=== PATIENT | male | born 1985 | race Caucasian/White ===

== ENCOUNTER 2024-04-08 10:19 | Emergency (ER) | payer SELFPAY ==
[2024-04-08 10:32] VITALS: RESP 20
[2024-04-08] MEDS: TORAdol 30 mg Injection IM ONE (10:38)
[2024-04-08] MEDS ORDERED: TORAdol 30 mg Injection ONE (10:38)
[2024-04-08] MEDS: NORCO 10-325 MG PO STA (10:55)
--- NOTE | 2024-04-08 11:36 | XRAY ---
CLINICAL HISTORY: swelling/gout COMPARISON: None. TECHNIQUE: X-ray examination of the Left wrist joint is performed in PA, lateral, and oblique 3 views. FINDINGS: A subarticular cyst with thin sclerotic margins at the distal radius bone, a few are also in the triquetrum bone. Subtle irregularity noted at distal radius. Subtle soft tissue swelling at the wrist. No obvious/definite acute bony abnormality. Bone density is normal. IMPRESSION: 1. A subarticular cyst with thin sclerotic margins at the distal radius bone, a few are also in the triquetrum bone, possible geodes of gout. 2. Subtle soft tissue swelling at the wrist. 3. No obvious/definite acute bony abnormality. DISCLAIMER:A subtle bone abnormality or fracture may not be readily apparent on x-rays, thus clinical correlation and further imaging including follow up CT, MRI, or follow up x-rays are advised as needed. Electronically Signed by: Say Lewis MD. (04/08/2024 11:32:05 EDT)
[2024-04-08 11:57] VITALS: BP 155/96; PULSE 100; TEMP 98.8; O2SAT 97
--- NOTE | 2024-04-08 12:11 | ERPHSYRPT ---
- History of Present Illness Time Seen by Provider: 04/08/24 10:23 Source: patient Exam Limitations: no limitations Patient Subjective Stated Complaint: Pt states "I think my gout is acting up. My left wrist is killing me and that is where it usually hits." Triage Nursing Assessment: Pt presented alert and oriented X 3, skin pw. PT ambulates with an upright steady gait, able to speak in clear full sentences. Pt has pain and tenderness to his left wrist. Physician History: 39 years old male with history of gout presented in the ER with complaint of worsening left wrist pain and swelling for last 2 days. Patient reports having similar symptoms multiple times in the past with gout flare. He is supposed to take allopurinol but has not been taking for quite some time. Pain is exacerbated with minimal movements at the wrist, has taken ibuprofen with no relief. Allergies/Adverse Reactions: No Known Drug Allergies Allergy (Verified 04/08/24 10:32) Hx Tetanus, Diphtheria Vaccination/Date Given: No Hx Influenza Vaccination/Date Given: No Hx Pneumococcal Vaccination/Date Given: No Immunizations Up to Date: No Travel Risk - International Travel Have you traveled outside of the country in past 3 weeks: No - Emerging Infectious Disease Are you exhibiting symptoms associated with any current EIDs: No - Review of Systems Constitutional: No Symptoms Ears, Nose, & Throat: No Symptoms Respiratory: No Symptoms Cardiac: No Symptoms Abdominal/Gastrointestinal: No Symptoms Genitourinary Symptoms: No Symptoms Musculoskeletal: Joint Pain, Joint Swelling Neurological: No Symptoms Endocrine: No Symptoms Hematologic/Lymphatic: No Symptoms - Past Medical History Pertinent Past Medical History: Yes Musculoskeletal History: Other Other Medical History: gout - Past Surgical History Past Surgical History: No - Social History Smoking Status: Current every day smoker How long have you smoked: years Exposure to second hand smoke: Yes Drug Use: none - Social Determinants of Health Will the patient participate in the screening: Declined to provide - Nursing Vital Signs Nursing Vital Signs: Initial Vital Signs Temperature 98.2 F 04/08/24 10:27 Pulse Rate 110 H 04/08/24 10:27 Respiratory Rate 20 04/08/24 10:27 Blood Pressure 173/101 04/08/24 10:27 O2 Sat by Pulse Oximetry 98 04/08/24 10:27 Pain Scale Pain Intensity 4 - Physical Exam General Appearance: no apparent distress, alert Neck Exam: normal inspection, supple, full range of motion Cardiovascular/Respiratory Exam: normal breath sounds, regular rate/rhythm Shoulder Exam: normal inspection, non-tender, no evidence of injury Elbow/Forearm Exam: normal inspection, non-tender, no evidence of injury, normal ROM Wrist Exam: bone tenderness, limited ROM, pain, soft tissue tenderness, swelling Hand Exam: soft tissue tenderness, swelling Neuro/Tendon Exam: normal sensation, normal motor functions Mental Status Exam: alert, oriented x 3, cooperative Skin Exam: normal color SpO2 Interpretation: normal SpO2: 97 O2 Delivery: Room Air Ordered Tests: Active Orders 24 hr Category Date Time Status WRIST (MIN 3 VIEWS) Stat Exams 04/08/24 10:31 Completed Uric Acid Stat Lab 04/08/24 11:08 Completed Medication Summary Discontinued Medications Generic Name Dose Route Start Last Admin Trade Name Rad PRN Reason Stop Dose Admin Hydrocodone Bitart/Acetaminophen 1 tablet 04/08/24 10:31 04/08/24 10:55 Hydrocodone/Acetamin 10-325 Mg Tablet PO 04/08/24 10:32 Not Given ONCE STA Ketorolac Tromethamine 30 mg 04/08/24 10:30 04/08/24 10:38 Ketorolac Tromethamine 30 Mg/Ml Inj IM 04/08/24 10:31 30 mg STAT ONE Administration Ketorolac Tromethamine Confirm 04/08/24 10:38 Ketorolac Tromethamine 30 Mg/Ml Inj Administered 04/08/24 10:39 Dose 30 mg .ROUTE .STK-MED ONE Lab/Rad Data: Laboratory Results 04/08/24 Range/Units 11:08 Uric Acid 9.8 H (3.5-7.2) mg/dL - Progress Progress: improved Progress Note: 04/08/24 12:10 39-year-old is evaluated for left wrist pain and swelling with history of gout. He is given Toradol and hydrocodone, on reevaluation pain is better. Has a uric acid of 9.8, x-rays did not show any fracture or dislocation of the wrist. He is started on indomethacin and also given a prescription of allopurinol to take after acute phase is over. Do not think patient has septic joint. Counseled pt/family regarding: lab results, diagnosis, need for follow-up, rad results Medical Desision Making - Diagnostic Testing Diagnostic test were ordered, analyzed, and reviewed by me: Yes Radiological Interpretation: Interpreted by me, Reviewed by me, Teleradiologist Report - Risk of complications The pt has a mod risk of morbidity or mortality based on: Need for prescription drug management - Departure Departure Disposition: Home Clinical Impression: Acute gout of left wrist Condition: Stable Critical Care Time: No Referrals: DOCTOR,NO FAMILY [Primary Care Provider] - Follow up/PCP as directed Instructions: Gout ED Additional Instructions: Take Tylenol/indomethacin as recommended. Follow-up with primary care for reevaluation. Return to ER for intractable pain swelling, difficulty movements etc. Prescriptions: Indomethacin 50 mg PO TID 5 Days #15 cap Allopurinol 100 mg [Zyloprim 100 mg] 100 mg PO BID 30 Days #60 tablet
== END 2024-04-08 12:25 | disposition home or self-care (01) ==
LOC: ED 10:19
DX: M10.9 Gout, unspecified (principal); M25.532 Pain in left wrist; Z72.0 Tobacco use
CPT/HCPCS: 36415; 73110; 84550; 96372; 99283; J1885